=== PATIENT | female | born 1950 | race Caucasian/White ===

== ENCOUNTER → 2016-07-14 | Outpatient (CLI) | payer MEDICARE, OTHER | END | disposition disaster alternative care site (69) | LOC: GBCOE 08:00 | DX: Z12.31 Encounter for screening mammogram for malignant neoplasm of breast (principal); Z78.0 Asymptomatic menopausal state; Z13.820 Encounter for screening for osteoporosis; K21.9 Gastro-esophageal reflux disease without esophagitis; E11.65 Type 2 diabetes mellitus with hyperglycemia; N28.1 Cyst of kidney, acquired; R10.11 Right upper quadrant pain | CPT/HCPCS: G0202 ==

== ENCOUNTER → 2016-08-18 | Outpatient (CLI) | payer MEDICARE, OTHER | LOC: LGSMG 12:45 | DX: N39.0 Urinary tract infection, site not specified (principal) ==

== ENCOUNTER → 2016-10-03 | Outpatient (CLI) | payer MEDICARE, OTHER | END | disposition disaster alternative care site (69) | LOC: GRAD 09-25 08:00 | DX: R47.01 Aphasia (principal); G31.9 Degenerative disease of nervous system, unspecified; G93.89 Other specified disorders of brain ==

== ENCOUNTER → 2016-11-21 | Outpatient (CLI) | payer MEDICARE, OTHER ==
--- NOTE | ~2016-11-21 | ESTC ---
Cardiac Perfusion Imaging Demographics Patient Name CAS Bashir Gender Female Patient Number [id number] Race Visit Number [id number] Ethnicity [employer] ID Room Number Accession Number [id number] Height 67.5 inches Date of 1950 Weight 175 pounds Interpreting Clifford Darlingdha Date of study 11/21/2016 Physician Supervising /[facility] Lat[place] Technologist Nevaeh Chavez MD Ordering Physician Mckayla Frost Stress drinking water technician Stress ECG Reading [facility] Nurse Bandar Sanchez Physician RN Aline Nunn RN The procedure was explained in detail to the patient. Risks, complications and alternative treatments were reviewed. Written consent was obtained. Medications Reviewed with Patient prior to Procedure. Procedure Procedure Type: Nuclear Stress Test:Pharmacological, Cardiolite Stress Test Procedure Start time: 11/21/2016 08:20 Indications: Chest pain. Risk Factors The patient risk factors include:cerebrovascular disease, former tobacco use, treated hypercholesterolemia, treated hypertension, orally-treated diabetes mellitus and dyslipidemia. Conclusions Impression ECG portion of the lexiscan stress test is clinically negative for ischemia by diagnostic criteria. Myocardial perfusion imaging is mildly abnormal. The images reveal a reversible defect in the apical anterolateral wall consistent with ischemia in the territory of the left anterior descending artery . Overall left ventricular systolic function was normal. Calculated LVEF is 63% and TID ratio is 1.17. This is a intermediate risk stress test. There are no previous studies for comparison . Stress Protocols Resting ECG NSR Resting HR:71 bpm Resting BP:125/60 mmHg Pre-stress physical exam: clear lungs Pharmacologic stress testing was performed due to inability to walk on treadmill . Predicted HR: 155 bpm ECG Findings No ECG changes suggestive of ischemia. Arrhythmias No rhythm abnormality. Symptoms Chest tightness. Abdominal pain. Stress Interpretation Appropriate hemodynamic response to Lexiscan. No significant ST-T wave changes with Lexiscan. ECG portion is negative for ischemia by diagnostic criteria. Imaging Results Applied corrections - Motion correction applied High risk findings Summed scores - Summed stress score: 10 - Summed rest score: 1 - Summed difference score: 9 Stress ejection Ejection fraction:63 % EDV :84 ml ESV :31 ml Stroke volume :53 ml LV mass :109 gr Imaging Protocols Rest Stress Isotope:Tc99m Sestamibi IV Isotope: Tc99m Sestamibi IV Isotope dose:15.1 mCi Isotope dose:45.1 mCi Date:11/21/2016 07:15 Date:11/21/2016 08:27 Technique: SPECT Technique: Gated Supine SPECT Supine Scan Time:45-60 minutes post Scan Time:45-60 minutes post injection injection Procedure Medications - Regadenoson (Lexiscan) 0.4 mg IV over 10-15 sec. I.V. 0.4 mg. Medical History Admission Data Admission date: 11/21/2016 Admission Time: 06:52 Hospital Status: Outpatient. Signatures dtt: LATRICIA HARRIS dtd: 11/21/16 0840 Physician Self Edit
== END | disposition disaster alternative care site (69) ==
LOC: GRAD 06:52
DX: R07.9 Chest pain, unspecified (principal); I67.9 Cerebrovascular disease, unspecified; E78.00 Pure hypercholesterolemia, unspecified; I10 Essential (primary) hypertension; E11.9 Type 2 diabetes mellitus without complications; E78.5 Hyperlipidemia, unspecified; Z87.891 Personal history of nicotine dependence
CPT/HCPCS: A9500; J2785